=== PATIENT | female | born 1995 | race African-American/Black ===

== ENCOUNTER 2020-09-18 11:20 | Inpatient (IN) | payer OTHER ==
[2020-09-18] MEDS: DEXTROSE 5%-LACTATED RINGERS 1,000 ML IV SCH (14:30)
[2020-09-18 15:06] LABS: BASO % 0.1 % (0-2.0); EOS % 0.5 % (0-4.5); HEMATOCRIT 35.8 % (32.4-45.2); HEMOGLOBIN 12.1 GM/dL (10.7-15.3); LYMPH % 12.8 % (8-40); MCH 30.3 pg (25.7-33.7); MCHC 33.9 g/dl (32.0-36.0); MEAN CELL VOLUME 89.3 fl (80-96); MEAN PLT VOLUME 9.1 fl (7.5-11.1); MONO % 7.4 % (3.8-10.2); NEUT % 79.2 % (42.8-82.8); PLATELET COUNT 200 K/MM3 (134-434); RDW 14.6 % (11.6-15.6); WHITE BLOOD COUNT 7.1 K/mm3 (4.0-10.0)
[2020-09-18 15:13] LABS: INR 0.91 (0.83-1.09); PROTHROMBIN TIME (PATIENT) 11.2 SEC (9.7-13.0)
[2020-09-18 15:15] LABS: ACTIVATED PTT 28.9 SECONDS (25.2-36.5)
[2020-09-18 15:25] LABS: CALCIUM 9.4 mg/dL (8.5-10.1)
[2020-09-18 15:26] LABS: BLOOD UREA NITROGEN 3.3 mg/dL (7-18)
[2020-09-18 15:29] LABS: CREATININE 0.4 mg/dL (0.55-1.3)
[2020-09-18 15:59] VITALS: BMI 35.0
[2020-09-18] MEDS ORDERED: DINOPROSTONE 10 MG VAGINAL SUPPOSITORY VG ONE (16:15)
[2020-09-18] MEDS ORDERED: ZOLPIDEM TARTRATE 5 MG TABLET PO PRN ×2 (18:38→22:00)
[2020-09-19] MEDS ORDERED: AMPICILLIN - 2 GM in SODIUM CHLORIDE 100 ML IVPB ONE (06:00)
[2020-09-19] MEDS ORDERED: OXYTOCIN 30 UNITS in 0.9% NS 30 UNIT/500 ML INFUS.BAG IVPB ONE (06:01)
[2020-09-19] MEDS ORDERED: AMPICILLIN SODIUM 2 GM VIAL ONE (06:02)
[2020-09-19] MEDS: OXYTOCIN 30 UNITS in 0.9% NS 30 UNIT/500 ML INFUS.BAG IVPB SCH (06:15)
[2020-09-19] MEDS ORDERED: PCA PUMP NR ONE (09:13)
[2020-09-19] MEDS ORDERED: FENTANYL/BUPIVACAINE/NS/PF - PCEA - 50 ML DISP.SYRIN EP ONE ×2 (09:13→13:21)
[2020-09-19] MEDS ORDERED: BUPIVACAINE HCL/PF 0.25% (2.5MG/ML) 10 ML VIAL ONE (09:22)
[2020-09-19] MEDS: FENTANYL/BUPIVACAINE/NS/PF - PCEA - 50 ML DISP.SYRIN EP SCH (09:40)
[2020-09-19] MEDS ORDERED: NALOXONE HCL 0.4 MG/ML VIAL IVPUSH PRN (09:50)
[2020-09-19] MEDS ORDERED: AMPICILLIN SODIUM 1 GM VIAL ONE ×2 (10:23→14:53)
[2020-09-19] MEDS: AMPICILLIN - 1 GM in SODIUM CHLORIDE 100 ML IVPB SCH ×3 (10:25→17:00)
[2020-09-19] MEDS ORDERED: OXYTOCIN 20 UNITS in 0.9% NS 20 UNIT/1,000 ML INFUS.BAG IV ONE (14:52)
[2020-09-19] MEDS ORDERED: LIDOCAINE HCL 1% PRESERVATIVE FREE - 30ML VIAL ONE (14:52)
[2020-09-19] MEDS ORDERED: BISACODYL 10 MG SUPP.RECT RC PRN (16:15)
[2020-09-19] MEDS ORDERED: WITCH HAZEL 50% (TUCKS) 40 PAD/JAR PAD TP PRN (16:15)
[2020-09-19] MEDS ORDERED: OXYTOCIN 20 UNITS in 0.9% NS 20 UNIT/1,000 ML INFUS.BAG IV SCH (16:15)
[2020-09-19] MEDS ORDERED: BENZOCAINE 20% 57 GM BOTTLE TP PRN (16:15)
[2020-09-19] MEDS ORDERED: BENZOCAINE 28 GM HEMORRHOIDAL OINTMENT TP PRN (16:15)
[2020-09-19] MEDS ORDERED: METHYLERGONOVINE MALEATE 0.2 MG/1 ML AMP IM PRN (16:15)
[2020-09-19] MEDS: DEXTROSE 5%-LACTATED RINGERS 1,000 ML IV SCH (16:23)
[2020-09-19] MEDS: ACETAMINOPHEN 325 MG TABLET (FP) PO PRN (22:31)
[2020-09-19] MEDS: IBUPROFEN 600 MG TABLET (FP) PO PRN (22:31)
[2020-09-20 08:23] LABS: BASO % 0.1 % (0-2.0); EOS % 2.1 % (0-4.5); HEMATOCRIT 35.4 % (32.4-45.2); HEMOGLOBIN 12.1 GM/dL (10.7-15.3); LYMPH % 3.9 % (8-40); MCH 30.4 pg (25.7-33.7); MCHC 34.3 g/dl (32.0-36.0); MEAN CELL VOLUME 88.8 fl (80-96); MEAN PLT VOLUME 8.6 fl (7.5-11.1); MONO % 3.5 % (3.8-10.2); NEUT % 90.4 % (42.8-82.8); PLATELET COUNT 173 K/MM3 (134-434); RBC 3.99 M/mm3 (3.60-5.2); WHITE BLOOD COUNT 9.7 K/mm3 (4.0-10.0)
[2020-09-20] MEDS: IBUPROFEN 600 MG TABLET (FP) PO PRN ×2 (08:52→20:54)
[2020-09-20] MEDS: ACETAMINOPHEN 325 MG TABLET (FP) PO PRN ×2 (08:53→20:55)
[2020-09-20] MEDS: OXYTOCIN 30 UNITS in 0.9% NS 30 UNIT/500 ML INFUS.BAG IVPB SCH (10:07)
[2020-09-20] MEDS: FENTANYL/BUPIVACAINE/NS/PF - PCEA - 50 ML DISP.SYRIN EP SCH (19:39)
[2020-09-20] MEDS ORDERED: SENNOSIDES/DOCUSATE COMBO (SENNA PLUS) TABLET (UD) PO PRN (22:00)
[2020-09-21] MEDS: IBUPROFEN 600 MG TABLET (FP) PO PRN ×2 (02:24→09:45)
[2020-09-21] MEDS: ACETAMINOPHEN 325 MG TABLET (FP) PO PRN ×2 (02:24→09:45)
[2020-09-21 09:53] VITALS: BP 101/59; PULSE 84; TEMP 97.5
== END 2020-09-21 14:15 | disposition home or self-care (01) | DRG 560 ==
LOC: JDEL 11:20 → JLDR 13:30 → J3W 09-19 17:30
PROVIDERS: ADMIT Specialist; ATTEND Specialist
PROC: 3E0P7VZ Introduction of Hormone into Female Reproductive, Via Natural or Artificial Opening (ICD-10-PCS; 2020-09-18)
PROC: 10E0XZZ Delivery of Products of Conception, External Approach (ICD-10-PCS; principal; 2020-09-19)
PROC: 10907ZC Drainage of Amniotic Fluid, Therapeutic from Products of Conception, Via Natural or Artificial Opening (ICD-10-PCS; 2020-09-19)
PROC: 3E033VJ Introduction of Other Hormone into Peripheral Vein, Percutaneous Approach (ICD-10-PCS; 2020-09-19)
DX: O36.8390 Maternal care for abnormalities of the fetal heart rate or rhythm, unspecified trimester, not applicable or unspecified (principal); Z3A.39 39 weeks gestation of pregnancy; Z37.0 Single live birth
CPT/HCPCS: 36415; 59025; 59409; 80048; 85025; 85610; 85730; 86780; 86850; 86900; 86901